=== PATIENT | female | born 1970 | race Caucasian/White ===

== ENCOUNTER 2024-07-06 05:30 | Day surgery (SDC) | payer MEDICAID ==
[~2024-07-06] VITALS: Ht 157.5 cm; Wt 63.5 kg
[2024-07-06] MEDS ORDERED: MEPERIDINE 100 MG INJ. 100 MG/ML VIAL ONE (06:56)
[2024-07-06] MEDS ORDERED: SIMETHICONE 40 MG/0.6 ML ML ONE (06:56)
[2024-07-06] MEDS ORDERED: MIDAZOLAM HCL 5 MG/5 ML VIAL ONE (06:57)
[2024-07-06 10:11] VITALS: O2SAT 98
[2024-07-06 17:34] VITALS: BP_SYST 102; PULSE 64; RESP 10
== END 2024-07-06 08:53 | disposition home or self-care (01) ==
LOC: SDS 05:30 → SMU 05:30 → SDS 08:53
PROVIDERS: ATTEND Internal Medicine Gastroenterology
DX: Z12.11 Encounter for screening for malignant neoplasm of colon (principal); K64.8 Other hemorrhoids
CPT/HCPCS: 45378; 99152; G0378; J2250; J2175